=== PATIENT | female | born 2000 | race Caucasian/White ===

== ENCOUNTER 2024-01-08 11:03 | Emergency (ER) | payer OTHER ==
--- NOTE | 2024-01-08 11:25 | ED Physician Documentation ---
PD HPI HEADACHE - Stated complaint Stated Complaint: VELEZ - Chief complaint Chief Complaint: Neuro - History obtained from History obtained from: Patient - Additional information Additional information: 23-year-old woman with history of POTS is visiting from [place] on a long-term camping trip. Over last 4 days she has had a gradual onset moderate headache consistent with prior headaches that she feels is related to dehydration. She tried Tylenol yesterday with partial relief. No fevers or chills. No neck stiffness. PD PAST MEDICAL HISTORY - Past Medical History Past Medical History: Yes Cardiovascular: Other Other Past Medical History: POTS - Past Surgical History Past Surgical History: No - Allergies Allergies/Adverse Reactions: Allergies Allergy/AdvReac Type Severity Reaction Status Date / Time No Known Drug Allergies Allergy Verified 01/08/24 11:15 - Social History Does the pt smoke?: No Smoking Status: Never smoker Does the pt drink ETOH?: Yes Does the pt have substance abuse?: No - Immunizations Immunizations are current?: Yes - POLST Patient has POLST: No PD ED PE NORMAL - Vitals Vital signs reviewed: Yes - General General: Alert and oriented X 3, No acute distress - HEENT HEENT: PERRL, EOMI - Neck Neck: Supple, no meningeal sign, No bony TTP - Neuro Neuro: Alert and oriented X 3, 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 As such I doubt subarachnoid hemorrhage. There are no infectious symptoms such as fever or stiff neck to make me suspect meningitis. No carbon monoxide exposure by history. She specifically requested IV Toradol Zofran and fluids which is very reasonable. After the above interventions she did get relief of her headache Departure - Departure Disposition: 01 Home, Self Care Clinical Impression: Headache Condition: Good Record reviewed to determine appropriate education?: Yes Instructions: ED Cephalgia Unspecified Comments: Return anytime if you worsen, drink plenty of fluids. You can take Tylenol and/or ibuprofen as needed for pains. Follow-up with your doctor on return home. Forms: PCP List
[2024-01-08 11:32] VITALS: BP 139/67; O2SAT 100
[2024-01-08] MEDS: KETOROLAC 15 MG/ML VIAL IVP STA (11:40)
[2024-01-08] MEDS: ONDANSETRON 4 MG/2 ML VIAL IVP STA (11:40)
[2024-01-08] MEDS: SODIUM CHLORIDE 0.9% 1,000 ML IV STA ×2 (11:40→11:41)
== END 2024-01-08 12:44 | disposition home or self-care (01) ==
LOC: ED 11:03
DX: R51.9 Headache, unspecified (principal)
CPT/HCPCS: 96374; 99283